=== PATIENT | female | born 1950 | race Native Hawaiian/Other Pacific Islander ===

== ENCOUNTER 2016-12-01 14:41 | Outpatient (CLI) | payer OTHER | END 2016-12-01 15:50 | disposition home or self-care (01) | LOC: RAD 14:41 | DX: M75.41 Impingement syndrome of right shoulder (principal) ==

== ENCOUNTER 2018-07-17 10:46 | Outpatient (CLI) | payer OTHER | END 2018-07-17 22:19 | disposition home or self-care (01) | LOC: RAD 10:46 | DX: M54.2 Cervicalgia (principal); R07.89 Other chest pain; M25.512 Pain in left shoulder ==

== ENCOUNTER 2018-07-25 07:29 | Outpatient (CLI) | payer OTHER | END 2018-07-25 20:57 | disposition home or self-care (01) | LOC: LABW 07:29 | DX: S42.035D Nondisplaced fracture of lateral end of left clavicle, subsequent encounter for fracture with routine healing (principal) | CPT/HCPCS: 36415; 82306 ==

== ENCOUNTER 2018-07-31 10:22 | Outpatient (CLI) | payer OTHER | END 2018-07-31 19:13 | disposition home or self-care (01) | LOC: RAD 10:22 | DX: S42.035D Nondisplaced fracture of lateral end of left clavicle, subsequent encounter for fracture with routine healing (principal); M81.0 Age-related osteoporosis without current pathological fracture ==

== ENCOUNTER 2018-09-07 12:58 | Outpatient (CLI) | payer OTHER, MEDICARE ==
[~2018-09-07] VITALS: Ht 157.5 cm; Wt 57.6 kg
[2018-09-07 13:30] VITALS: BP 135/78; TEMP 98
== END 2018-09-07 14:20 | disposition home or self-care (01) ==
LOC: INF 12:58
DX: M81.0 Age-related osteoporosis without current pathological fracture (principal)
CPT/HCPCS: 82310; 96372; J0897

== ENCOUNTER 2019-03-12 13:22 | Outpatient (CLI) | payer OTHER, MEDICARE ==
[~2019-03-12] VITALS: Ht 154.9 cm; Wt 57.6 kg
[2019-03-12 13:44] VITALS: BP 116/57; TEMP 99.1
== END 2019-03-12 14:15 | disposition home or self-care (01) ==
LOC: INF 13:22
DX: M81.0 Age-related osteoporosis without current pathological fracture (principal)
CPT/HCPCS: 36415; 82310; 96372; J0897

== ENCOUNTER 2019-09-10 12:29 | Outpatient (CLI) | payer OTHER, MEDICARE ==
[~2019-09-10] VITALS: Ht 162.6 cm; Wt 57.2 kg
== END 2019-09-10 14:18 | disposition home or self-care (01) ==
LOC: INF 12:29
DX: M81.0 Age-related osteoporosis without current pathological fracture (principal)
CPT/HCPCS: 36415; 82310; 96372; J0897

== ENCOUNTER 2020-04-09 12:41 | Outpatient (CLI) | payer OTHER, MEDICARE ==
[~2020-04-09] VITALS: Ht 162.6 cm; Wt 57.2 kg
[2020-04-09 13:30] VITALS: BP 136/64; TEMP 98.2
== END 2020-04-09 14:25 | disposition home or self-care (01) ==
LOC: INF 12:41
DX: M81.0 Age-related osteoporosis without current pathological fracture (principal)
CPT/HCPCS: 36415; 82310; 96372; J0897

== ENCOUNTER 2020-10-29 07:26 | Outpatient (CLI) | payer OTHER, MEDICARE ==
[2020-10-29 07:55] LABS: PLATELET COUNT 168 K/uL (152-353)
[2020-10-29 08:59] LABS: POTASSIUM 3.8 mmol/L (3.6-5.2)
== END 2020-10-29 21:44 | disposition home or self-care (01) ==
LOC: LABW 07:26
PROVIDERS: ATTEND Internal Medicine
DX: Z00.00 Encounter for general adult medical examination without abnormal findings (principal); M81.0 Age-related osteoporosis without current pathological fracture; E78.00 Pure hypercholesterolemia, unspecified; E55.9 Vitamin D deficiency, unspecified
CPT/HCPCS: 36415; 80053; 80061; 82306; 84439; 84443; 85027

== ENCOUNTER 2020-11-17 11:17 | Emergency (ER) | payer OTHER, MEDICARE ==
[~2020-11-17] VITALS: Ht 157.5 cm; Wt 57.6 kg
[2020-11-17 12:20] VITALS: BP 148/72; TEMP 97.7
== END 2020-11-17 12:20 | disposition home or self-care (01) ==
LOC: ED 11:17
DX: S29.011A Strain of muscle and tendon of front wall of thorax, initial encounter (principal); V43.52XA Car driver injured in collision with other type car in traffic accident, initial encounter; Y92.410 Unspecified street and highway as the place of occurrence of the external cause
CPT/HCPCS: 93005; 99283

== ENCOUNTER 2020-12-08 13:40 | Outpatient (CLI) | payer OTHER, MEDICARE ==
[~2020-12-08] VITALS: Ht 157.5 cm; Wt 57.6 kg
== END 2020-12-08 21:50 | disposition home or self-care (01) ==
LOC: MRI 13:40 → INF 13:40 → MRI 15:00 → INF 21:50
PROVIDERS: ATTEND Internal Medicine
DX: M19.90 Unspecified osteoarthritis, unspecified site (principal); M25.511 Pain in right shoulder
CPT/HCPCS: 36415; 82310; 96372; J0897

== ENCOUNTER 2021-06-11 12:43 | Outpatient (CLI) | payer OTHER, MEDICARE ==
[~2021-06-11] VITALS: Ht 157.5 cm; Wt 58.1 kg
== END 2021-06-11 18:56 | disposition home or self-care (01) ==
LOC: INF 12:43
PROVIDERS: ATTEND Internal Medicine
DX: M81.0 Age-related osteoporosis without current pathological fracture (principal)
CPT/HCPCS: 36415; 82310; 96372; J0897

== ENCOUNTER 2021-12-10 12:40 | Outpatient (CLI) | payer OTHER, MEDICARE ==
[~2021-12-10] VITALS: Ht 165.1 cm; Wt 57.2 kg
[2021-12-10 13:40] VITALS: BP 121/57; TEMP 98.4
== END 2021-12-10 20:01 | disposition home or self-care (01) ==
LOC: INF 12:40
PROVIDERS: ATTEND Internal Medicine
DX: M81.0 Age-related osteoporosis without current pathological fracture (principal)
CPT/HCPCS: 36415; 82310; 96372; J0897

== ENCOUNTER 2022-06-14 13:33 | Outpatient (CLI) | payer OTHER, MEDICARE ==
[~2022-06-14] VITALS: Ht 165.1 cm; Wt 59.0 kg
[2022-06-14 13:49] VITALS: BP 132/57; TEMP 98.2
[2022-06-14 14:21] VITALS: BP 128/61; TEMP 98
== END 2022-06-14 20:25 | disposition home or self-care (01) ==
LOC: INF 13:33
PROVIDERS: ATTEND Internal Medicine
DX: M81.0 Age-related osteoporosis without current pathological fracture (principal)
CPT/HCPCS: 36415; 82310; 96372; J0897

== ENCOUNTER 2023-01-13 12:17 | Outpatient (CLI) | payer OTHER, MEDICARE | END 2023-01-13 19:23 | disposition home or self-care (01) | LOC: LABW 12:17 | PROVIDERS: ATTEND Internal Medicine | DX: K52.89 Other specified noninfective gastroenteritis and colitis (principal); D84.89 Other immunodeficiencies | CPT/HCPCS: 82272; 83630; 87015; 87206; 87324; 87328; 87329; 87449; 87507 ==